=== PATIENT | female | born 2000 | race Caucasian/White ===

== ENCOUNTER 2022-04-19 12:43 | Outpatient (CLI) | payer BC ==
[2022-04-19 14:47] LABS: BHCG - Serum Negative (NEGATIVE); Pregs Control Background? CLEAR/WHITE (CLR/WHITE); Pregs Control Bar Appear? YES (CONTROL BAR)
== END 2022-04-19 12:44 | disposition home or self-care (01) ==
LOC: LABBT 12:43
PROVIDERS: ATTEND Specialist
DX: Z01.812 Encounter for preprocedural laboratory examination (principal); J35.01 Chronic tonsillitis; J34.3 Hypertrophy of nasal turbinates; R59.9 Enlarged lymph nodes, unspecified; R09.81 Nasal congestion; Z20.822 Contact with and (suspected) exposure to COVID-19
CPT/HCPCS: 84703; 85014; 87811

== ENCOUNTER 2022-04-22 06:16 | Day surgery (SDC) | payer BC ==
[2022-04-21 09:48] VITALS: BMI 28.1
[~2022-04-22 06:16] MED LIST: Dexamethasone 20 MG/5 ML VIAL ONE; Ondansetron PF 4 MG/2 ML Vial ONE; PROPOFOL 200 MG/20 ML VIAL ONE; Succinylcholine 200 MG/10 ml SYRINGE FS ONE
[2022-04-22] MEDS ORDERED: Oxymetazoline HCl 0.05% (30 ML BOT) ONE ×2 (06:25→07:00)
[2022-04-22] MEDS ORDERED: Dexmedetomidine 200 MCG/2 ML VIAL ONE (06:44)
[2022-04-22] MEDS ORDERED: fentaNYL Citrate/PF 100 MCG/2 ML SYRINGE ONE ×2 (06:44→07:15)
[2022-04-22] MEDS ORDERED: EPINEPHrine 1 MG/ML AMP ONE (07:00)
[2022-04-22] MEDS ORDERED: Lidocaine 1% (PF) 30 ML VIAL ONE (07:00)
[2022-04-22] MEDS ORDERED: Ferric Subsulfate (ASTRINGYN) 8 GM VIAL ONE (07:00)
[2022-04-22] MEDS ORDERED: Ketamine 50 MG/ML (10ML VIAL) ONE (07:15)
[2022-04-22] MEDS ORDERED: Midazolam HCl 2 mg/2 ml Vial ONE (07:21)
[2022-04-22] MEDS ORDERED: Scopolamine 1.5 mg/72 hour Patch ONE (07:21)
[2022-04-22] MEDS ORDERED: Fentanyl 100 MCG/2 ML VIAL ONE ×2 (09:22→09:34)
[2022-04-22] MEDS ORDERED: Hydrocodone-Acetamin 15 ML UDCUP ONE ×2 (10:30)
== END 2022-04-22 11:35 | disposition home or self-care (01) ==
LOC: SDC 06:16
PROVIDERS: ATTEND Specialist
PROC: 09SL8ZZ Reposition Nasal Turbinate, Via Natural or Artificial Opening Endoscopic (ICD-10-PCS; principal; 2022-04-22)
PROC: 0CTPXZZ Resection of Tonsils, External Approach (ICD-10-PCS; principal; 2022-04-22)
DX: J35.01 Chronic tonsillitis (principal); J34.3 Hypertrophy of nasal turbinates; Z79.899 Other long term (current) drug therapy; Z86.16 Personal history of COVID-19
CPT/HCPCS: 88304; J0171; J1100; J2001; J2250; J2405; J2704; J3010